=== PATIENT | male | born 1970 | race Caucasian/White ===

== ENCOUNTER 2024-08-11 19:22 | Emergency (ER) | payer SELFPAY ==
[~2024-08-11] VITALS: Ht 172.7 cm; Wt 77.3 kg
[2024-08-11 19:34] VITALS: TEMP 98.3
[2024-08-11 19:37] LABS: COVID AG,FIA SOURCE NASAL SWAB
[2024-08-11] MEDS ORDERED: CIPR250T6 PO (19:40)
[2024-08-11] MEDS ORDERED: AMOX250C4 PO (19:40)
[2024-08-11 19:50] LABS: RAPID GROUP A STREP NEGATIVE (NEGATIVE)
[2024-08-11 19:56] LABS: SARS-COV2 (COVID) ANTIGEN,FIA Negative (Negative)
[2024-08-11 19:57] LABS: INFLUENZA TYPE A NEGATIVE FOR TYPE A (NEGATIVE); INFLUENZA TYPE B NEGATIVE FOR TYPE B (NEGATIVE)
[2024-08-11 21:04] VITALS: BP 142/89; PULSE 98; RESP 20; O2SAT 96
[2024-08-11] MEDS ORDERED: ACET-66 PO (22:24)
[2024-08-11] MEDS ORDERED: CEPH-558 PO (22:24)
[2024-08-11] MEDS ORDERED: IBUP-1554 PO (22:24)
[2024-08-11] MEDS ORDERED: DOXY-354 PO (22:24)
[2024-08-11] MEDS ORDERED: CORTSUSP AD (22:24)
[2024-08-11] MEDS: IBUPROFEN 600 MG TABLET PO ONE (23:09)
[2024-08-11] MEDS: CEPHALEXIN MONOHYDRATE 500 MG CAPSULE PO ONE (23:09)
[2024-08-11] MEDS: DOXYCYCLINE HYCLATE 100 MG TABLET PO ONE (23:09)
== END 2024-08-11 23:28 | disposition home or self-care (01) ==
LOC: EMS 19:22
DX: H66.91 Otitis media, unspecified, right ear (principal); H60.11 Cellulitis of right external ear; Z90.49 Acquired absence of other specified parts of digestive tract; Z98.890 Other specified postprocedural states; Z20.822 Contact with and (suspected) exposure to COVID-19
CPT/HCPCS: 87430; 87804; 99284; Z7502; Z7610